=== PATIENT | female | born 1995 ===

== ENCOUNTER 2016-09-20 23:29 | Emergency (ER) | payer MEDICAID ==
[~2016-09-20] VITALS: Ht 154.9 cm; Wt 77.3 kg
[~2016-09-20 23:29] MED LIST: NOMED; OMPR20CCR PO
[2016-09-20 23:46] VITALS: BP 127/93; PULSE 82; RESP 18; O2SAT 98
[2016-09-21 00:39] LABS: BASOPHILS % (AUTO) 0.4 % (0-3); EOSINOPHILS % (AUTO) 1.7 % (0-5); MONOCYTES % (AUTO) 11.1 % (4-12); Mean Corpuscular Hemoglobin 27.2 pg (27.0-35.0); Mean Corpuscular Volume 80.3 fL (81-100); Platelet Count 375 bil/L (150-400)
--- NOTE | 2016-09-21 00:40 | ED.REPORT ---
HPI-Abd Pain F Under 39 Date of Service Sep 21, 2016 ED Provider: Aida Sorensen MD A 21 year old female with a history of cholecystectomy and reflux presents to the ED complaining of intermittent abdominal pain. The pain has been occurring intermittently for approximately one year, but has become far more frequent in the last three to four days. The pain is present in intermittent twenty minute to hour long stretches. The pain feels similar to constipation, but the pt is frequently unable to have a bowel movement when she tries. When she does, it is usually diarrhea. The pain is described as concentrated in the middle of her abdomen and radiating to her back. The pain is accompanied by chills, nausea, vomiting, and diarrhea. The pt wanted to make sure that she does not have appendicitis. She takes Omeprazole every other day, but takes no other medications. Nursing Notes Stated Complaint: STOMACH PAIN Chief Complaint: Female Abdominal Pain Nursing Notes Reviewed: Yes Allergies: Coded Allergies: naproxen (Verified Allergy, Severe, hives, 09/20/16) sulfamethoxazole (Verified Allergy, Severe, hives, 09/20/16) trimethoprim (Verified Allergy, Severe, hives, 09/20/16) amoxicillin (Verified Allergy, Unknown, UNKNOWN, 09/20/16) ibuprofen (Verified Adverse Reaction, Severe, UPSET STOMACH, 09/20/16) Scheduled Cephalexin (Keflex) 500 Mg Capsule 500 MG PO QID Omeprazole (Prilosec) 20 Mg Capcr 20 MG PO BID Miscellaneous Medications No Historical Medication (No Historical Medication) Ea General Time Seen by MD: 00:39 Chief Complaint Abdominal pain Hx Obtained From: Patient Arrived By: Walk-in Sudden in Onset?: No Onset Occurred: More than a week ago... 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 Physical Exam Initial Vital Signs Vital Signs (First) Date Time Temp Pulse Resp B/P Pulse Ox O2 Delivery O2 Flow Rate FiO2 09/20/16 23:46 36.2 82 18 127/93 98 Room Air Initial VS: Reviewed General/Constitutional: Awake, Alert Appearance / Presentation: Positive: Obese Respiratory / Chest: Atraumatic, Breath sounds NL, Breath sounds = bilat, No respiratory distress Cardiovascular: Heart rate NL, Regular rhythm, Heart sounds NL Abdomen: Atraumatic, Soft, Non-tender Back: Atraumatic, Full range of motion Head / Eyes: Atraumatic, Normocephalic, PERRL, EOMI ENT: Atraumatic, Airway patent, Mucous membranes moist Skin: Atraumatic, Color NL, No rash, Warm, Dry Neurologic: Oriented X3, Speech NL, No motor deficits, No sensory deficits Neck: Atraumatic, Supple, Full range of motion Upper Extremity / MS: Atraumatic, Full range of motion Lower Extremity / Pelvis / MS: Atraumatic, Full range of motion Psychiatric: Affect NL, Mood NL Interpretation & Diagnostics Lab Results Interpretation Result Diagram: 09/21/16 0021 09/21/16 0021 Test 09/21/16 00:20 09/21/16 00:21 09/21/16 01:01 Hold Reddy Top Tube Received (Received) White Blood Count 10.1th/mm3 (3.8-10.1) Red Blood Count 5.07mil/mm3 (3.90-5.20) Hemoglobin 13.8g/dL (12.0-15.6) Hematocrit 40.7% (35.0-46.0) Mean Corpuscular Volume 80.3fL (81-100) Mean Corpuscular Hemoglobin 27.2pg (27.0-35.0) Mean Corpuscular Hemoglobin Concent 33.9% (32.0-37.0) Red Cell Distribution Width 14.7% (12.3-15.4) Platelet Count 375bil/L (150-400) Neutrophils (%) (Auto) 61.0% (40-74) Lymphocytes (%) (Auto) 25.5% (14-46) Monocytes (%) (Auto) 11.1% (4-12) Eosinophils (%) (Auto) 1.7% (0-5) Basophils (%) (Auto) 0.4% (0-3) Sodium Level 139mEq/L (134-144) Potassium Level 4.2mEq/L (3.5-5.2) Chloride Level 106mEq/L (97-108) Carbon Dioxide Level 21mmol/L (18-29) Blood Urea Nitrogen 8mg/dL (6-20) Creatinine 0.64mg/dL (0.57-1.00) Estimat Glomerular Filtration Rate 166mL/min (>59) Glucose Level 102mg/dL (60-99) Calcium Level 8.2mg/dL (8.5-10.1) Magnesium Level 2.0mg/dL (1.6-2.6) Total Bilirubin 0.2mg/dL (0.0-1.2) Aspartate Amino Transf (AST/SGOT) 30U/L (0-50) Alanine Aminotransferase (ALT/SGPT) 70U/L (0-32) Alkaline Phosphatase 96U/L (25-150) Pro-B-Type Natriuretic Peptide 42.02pg/mL (0-130) Total Protein 6.0g/dL (6.4-8.4) Albumin 3.8g/dL (3.4-5.0) Lipase 44U/L (13-60) Urine Color Yellow (YELLOW) Urine Appearance Clear (CLEAR,HAZY) Urine pH 5.5 (5.0-8.0) Urine Specific Tolstoy 1.030 (1.003-1.035) Urine Protein Negativemg/dL (NEG,TRACE) Urine Glucose (UA) Negativemg/dL (NEGATIVE) Urine Ketones Negativemg/dL (NEGATIVE) Urine Occult Blood Trace (NEGATIVE) Urine Nitrite Negative (NEGATIVE) Urine Bilirubin Negative (NEGATIVE) Urine Urobilinogen Normalmg/dL (NORMAL) Urine Leukocyte Esterase Negative (NEGATIVE) Urine RBC 0-2/hpf (0-2) Urine WBC 6-10/hpf (0-5) Urine Epithelial Cells Moderate/hpf (NONE-MOD) Urine Crystals Oxalic acid crystals (NONE Urine Bacteria Moderate/hpf (NONE-FEW) Urine Hyaline Casts None/lpf (NONE) Urine Granular Casts None seen (NONE SEEN) Urine Waxy Casts None seen (NONE SEEN) Urine Red Blood Cell Casts None seen (NONE SEEN) Urine White Blood Cell Casts None seen (NONE SEEN) Urine Mucus Present (None Seen) Urine Trichomonas None seen (NONE SEEN) Urine Yeast None (NONE SEEN) Urinalysis Comment None Urine Culture Reflexed Indicated Hold Urine Received (Received) Re-Eval/Medical Decision Med Decision/Clinical Course 21-year-old female here with intermittent epigastric abdominal pain for the last year. Differential diagnosis includes but is not limited to acid reflux versus gastritis versus pancreatitis versus urinary tract infection. Patient's labs are remarkable for normal CBC and CMP. She does have urinary tract infection. She was very eager to leave, as she was tired, and she did not receive her prescription for Keflex for her UTI. She was much more concerned about ruling out appendicitis. Her exam was not consistent for appendicitis. She is to follow-up with her primary care physician for her abdominal pain. I have called her to let her know that there is a prescription waiting for her in the emergency department for Keflex. Source of Hx: Old records Re-Evaluation/Progress : Time of Eval: 02:19 Patient Status: Condition improved Re-Evaluation/Progress Note: Pt rechecked, who is comfortable. She is informed of her diagnosis and the plan for discharge. The pt understands and agrees with the plan. All questions were addressed at this time. Counseled Regarding: Diagnosis, Lab results, Need for follow-up, When/why to return to ED Discharge & Departure Primary Impression: Epigastric pain Disposition: Home Discharge Condition All VS Reviewed: Yes Condition: Stable Patient Instructions: Acute Abdominal Pain (ED) Additional Instructions: Thank you for entrusting us with your care. Take your Omeprazole daily. Follow up with your primary care physician for further evaluation. Return to the emergency department if you develop any new or worsening symptoms. Your blood pressure in the emergency department today was elevated (138/85). Be sure to follow up with your primary care physician to have this rechecked because you may need to be started on blood pressure medications. Referrals: [facility] Scribe Attestation Portions of this note were transcribed by Emy Antonio. I, Dr. Sorensen personally performed the history, physical exam and medical decision-making; I reviewed and confirmed the accuracy of the information in the transcribed note. Signed by: Denia Dean, 09/21/2016 and 0219. copies to: [facility] Link,Aida Cruz MD Sep 21, 2016 00:40 EMY ANTONIO Sep 21, 2016 00:53
[2016-09-21] MEDS ORDERED: LidocaineVisc 2%:Antacid 1:1 10 mL Syringe PO SCH (00:55)
[2016-09-21 02:07] LABS: APPEARANCE,URINE CLEAR (CLEAR,HAZY); COLOR,URINE YELLOW (YELLOW); OCCULT BLOOD,URINE TRACE (NEGATIVE); PH,URINE 5.5 (5.0-8.0); UROBILINOGEN,URINE NORMAL (NORMAL)
[2016-09-21 02:21] VITALS: BP 120/83; PULSE 70; RESP 16; O2SAT 97
[2016-09-21] MEDS ORDERED: CEPH-512 PO (02:27)
== END 2016-09-21 02:22 | disposition home or self-care (01) ==
LOC: SED 23:29
DX: R10.13 Epigastric pain (principal); K21.9 Gastro-esophageal reflux disease without esophagitis; Z87.891 Personal history of nicotine dependence; Z88.1 Allergy status to other antibiotic agents; Z88.8 Allergy status to other drugs, medicaments and biological substances